=== PATIENT | male | born 1955 | race Caucasian/White ===

== ENCOUNTER → 2024-05-19 | Outpatient (CLI) | payer BC, SELFPAY ==
--- NOTE | 2024-05-19 11:54 | EKG12_ITS ---
Test Reason : PRE OP Blood Pressure : */* mmHG Vent. Rate : 54 BPM Atrial Rate : 54 BPM P-R Int : 154 ms QRS Dur : 82 ms QT Int : 402 ms P-R-T Axes : 31 37 35 degrees QTcB Int : 381 ms Sinus bradycardia Otherwise normal ECG Confirmed by SYDNI VASQUEZ, ALY ([id number]), manager editorial JASWANT LEWIS ([id number]) on 05/19/2024 1:45:20 PM Referred By: Todd Lima Confirmed By: ALY TROY MD
[2024-05-19 12:37] LABS: Hematocrit 41.8 % (40-54); Mean Corp Hgb Conc 33.5 g/dL (32-36); Mean Corpuscular Hgb 28.6 pg (27.0-32.0); Mean Corpuscular Volume 85.3 fL (80-94); Mean Platelet Vol. 10.8 fl (6.2-12.0); Platelet Count 264 K/mm3 (150-450); RBC Distribution Width CV 13.6 % (11.6-14.6); RBC Distribution Width SD 42.1 fl (35.1-43.9); White Blood Count 9.2 K/mm3 (4.4-11.0)
[2024-05-19 13:19] LABS: Anion Gap 10 (5-15); BUN 25 mg/dL (4-19); BUN/Creat Ratio 16.7 RATIO (10-20); Calcium,Total 9.5 mg/dL (7.6-11.0); Carbon Dioxide 25.8 mmol/L (21.0-32.0); Chloride 100 mmol/L (98-108); Creatinine, Serum 1.49 mg/dL (0.70-1.20); EST Glomerular Filtration Rate 51 (>60); Glucose 67 mg/dL (70-99); Potassium 4.1 mmol/L (3.3-5.1); Sodium Level 136 mmol/L (133-145)
== END | disposition home or self-care (01) ==
PROVIDERS: PCP Family Medicine; Referring Provider Otolaryngology; Visit Provider Otolaryngology
DX: Z01.812 Encounter for preprocedural laboratory examination (principal); Z01.810 Encounter for preprocedural cardiovascular examination
CPT/HCPCS: 36415; 80048; 85027; 93005

== ENCOUNTER → 2024-05-24 | Outpatient (CLI) | payer BC, SELFPAY ==
--- NOTE | 2024-05-24 10:00 | ETH_PTH ---
PATIENT: EDWAR JUSTICE LOC: [facility] U#:[id number] AGE/SX: 69/M ROOM: RE05/24/[address]: Dr. Todd Lima MD : [id number] BED: DIS: 05/24/2024 SPEC #: [id number] RECD: 05/25/24 09:06 STATUS: ISABEL ISHAN #: [id number] CARLOS: 05/24/24 10:[address]: Todd Lima DEPT: SURGICAL PATHOLOGY RECD BY: Ranjeet Stern ENTERED: 05/25/24 09:06 SP TYPE: ETH TISS OTHR DR: Dr. Lan Arboleda MD Tissues: A - Ethmoid sinus, NOS Procedures: Surgery Specimen Level III HEADER OPERATION: Septoplasty, submucous resection of inferior turbiantes PRE-OP DIAGNOSIS: Deviated nasal septum, chronic rhinitis, nasal congestion, hypertrophy of nasal turbinates TISSUE SUBMITTED: A- Septum MICROSCOPIC DIAGNOSIS A. Nasal septum, resection: * Trabecular bone and hyaline cartilage fragments with reactive/degenerative changes. MICROSCOPIC DESCRIPTION Slides are reviewed. GROSS DESCRIPTION A. Received in formalin in a container labeled with the patient's name, date of , and septum are multiple white-pinon fragments and strips of indurated soft tissue measuring 3.2 x 3.2 x 0.8 cm in aggregate. Serial sections reveal white-pinon, uniform surfaces. No distinct bone fragments are identified. Acetone Button Paster sections are submitted in A1. [facility] 05-25-2024 CPT:49179
== END | disposition home or self-care (01) ==
LOC: LABSPEC 15:25
PROVIDERS: PCP Family Medicine; Referring Provider Otolaryngology; Visit Provider Otolaryngology
DX: J34.2 Deviated nasal septum (principal); R09.81 Nasal congestion; J31.0 Chronic rhinitis; J34.3 Hypertrophy of nasal turbinates
CPT/HCPCS: 88305

== ENCOUNTER → 2025-01-19 | Outpatient (CLI) | payer BC, SELFPAY ==
--- NOTE | 2025-01-19 13:34 | ECHOD_ITS ---
Reason For Study Reason For Study: PHTN Procedure This was a 2D Doppler, Color Flow transthoracic echocardiogram. Myocardial strain analysis was performed in this exam to aid in the assessment of cardiac function. The patient is in sinus rhythm. Exam performed in department. Left Ventricle Normal-sized left ventricle. Normal left ventricular wall thickness. Left ventricular EF by Duncan's biplane: 63%. Normal diastolic function. No regional wall motion abnormalities noted. Right Ventricle Normal right ventricle. Normal systolic function. RVSP estimated at: 30 to 35 mmHg. Atria The left and right atria are normal. Estimated RA pressure: 3 mmHg. Normal atrial septum. Mitral Valve Normal mitral valve. No mitral stenosis. Trace mitral regurgitation. Tricuspid Valve Normal tricuspid valve. No tricuspid stenosis. Trace tricuspid regurgitation. Aortic Valve Trileaflet aortic valve. No hemodynamically significant aortic stenosis. No aortic regurgitation. Pulmonic Valve Normal pulmonic valve. No pulmonic stenosis. Trace pulmonic regurgitation. Great Vessels Normal sized aortic root. Normal ascending aorta. Pericardium/Pleural No pericardial effusion. MMode/2D Measurements & Calculations LVIDd: 4.5 cm IVSd: 1.0 cm LVOT diam: 2.0 cm LVIDs: 2.5 cm LVPWd: 0.99 cm LVOT area: 3.1 cm2 RVDd: 3.3 cm FS: 45.7 % Ao root diam: 3.0 cm asc Aorta Diam: 3.2 cm LAV(MOD- bp): 45.3 ml LAV(MOD- bp) Indexed: 22.9 ml/m2 LAV(MOD- sp2): 46.0 ml LAV(MOD- sp4): 45.9 ml LVAd ap4: 25.7 cm2 LVAd ap2: 22.9 cm2 EDV(MOD- bp): 64.3 ml LVLd ap4: 8.1 cm LVLd ap2: 7.7 cm ESV(MOD- bp): 23.7 ml EDV(MOD-sp4): 67.0 ml EDV(MOD-sp2): 58.1 ml EF(MOD- bp): 63.1 % EDV(sp4-el): 69.5 ml EDV(sp2-el): 57.7 ml LVAs ap4: 14.0 cm2 LVAs ap2: 13.1 cm2 LVLs ap4: 6.9 cm LVLs ap2: 6.6 cm ESV(MOD-sp4): 24.4 ml ESV(MOD-sp2): 22.0 ml ESV(sp4-el): 24.4 ml ESV(sp2-el): 22.1 ml EF(MOD-sp4): 63.6 % EF(MOD-sp2): 62.2 % EF(sp4-el): 65.0 % SV(MOD-sp4): 42.6 ml SV(MOD-sp2): 36.1 ml SV(sp4- el): 45.2 ml SI(MOD-sp4): 21.5 ml/m2 SI(MOD-sp2): 18.3 ml/m2 Ao sinus diam: 3.[address] Junction: 2.3 cm LA A4 area: 16.4 cm2 LA dimension(2D): 4.2 cm TAPSE: 2.0 cm RA A4 area: 13.3 cm2 Time Measurements MV dec time: 0.23 sec Doppler Measurements & Calculations MV E max payam: 79.1 cm/sec Lat Peak E' Payam: 13.6 cm/sec Med Peak E' Payam: 8.4 cm/sec MV A max payam: 88.6 cm/sec E/E' lat: 5.8 E/E' med: 9.5 MV E/A: 0.89 MV dec slope: 338.1 cm/sec2 Ao V2 max: 153.5 cm/sec LV V1 max: 135.6 cm/sec Ao max P.4 mmHg LV V1 max P.4 mmHg Ao V2 mean: 100.2 cm/sec LV V1 mean P.8 mmHg Ao mean P.6 mmHg LV V1 mean: 75.8 cm/sec Ao V2 VTI: 30.3 cm LV V1 VTI: 26.8 cm AV (velocity ratio): 0.88 JAMES(I,D): 2.7 cm2 JAMES(V,D): 2.7 cm2 SV(LVOT): 82.7 ml PA V2 max: 116.2 cm/sec TR max payam: 265.7 cm/sec TR max P.2 mmHg ECHO/Echo Complete Interpretation Summary Normal left ventricular systolic function with EF by Duncan's biplane: 62% Normal left ventricular diastolic function Normal left ventricular wall motion Normal right ventricular systolic function No hemodynamically significant valvular disease Ordering Physician: Charles Duncan V Referring Physician: Charles Duncan V Performed By: Marybeth Orantes RDCS
== END | disposition home or self-care (01) ==
LOC: CVS 13:31
PROVIDERS: PCP Family Medicine; Referring Provider Internal Medicine Pulmonary Disease; Visit Provider Internal Medicine Pulmonary Disease
DX: G47.00 Insomnia, unspecified (principal); G47.33 Obstructive sleep apnea (adult) (pediatric); I10 Essential (primary) hypertension; G47.63 Sleep related bruxism; G47.61 Periodic limb movement disorder
CPT/HCPCS: 93306